=== PATIENT | male | born 1980 | race Caucasian/White ===

== ENCOUNTER 2017-11-16 18:40 | Emergency (ER) | payer SELFPAY ==
[~2017-11-16] VITALS: Ht 195.6 cm; Wt 139.7 kg
[2017-11-16 19:10] VITALS: BP 114/91
--- NOTE | 2017-11-16 20:09 | Emergency Room Report ---
History of Present Illness General Chief Complaint: Medical Clearance Source: Patient Present Illness HPI 37 yo male patient presents to ER BIB police for medical clearance. Patient reports going through withdrawal symptoms of heroin; last used yesterday. Patient reports difficulty breathing; reports hx of asthma; denies use of asthma medication. Also complains of nausea; denies vomiting. Denies chest pain, fever, diarrhea, PRADHAN, vision changes. Allergies: Coded Allergies: No Known Allergies (Unverified , 11/16/17) Patient History Past Medical History: see triage record Reviewed Nursing Documentation: PMH: Agreed, PSxH: Agreed Nursing Documentation-PMH Past Medical History: No History, Except For Review of Systems All Other Systems: negative except mentioned in HPI Physical Exam Vital Signs Date Time Temp Pulse Resp B/P (MAP) Pulse Ox O2 Delivery O2 Flow Rate FiO2 11/16/17 19:02 97.8 71 15 114/91 95 Room Air 97.9 Sp02 EP Interpretation: reviewed, normal General Appearance: well appearing, no apparent distress, alert, GCS 15 Head: normocephalic, atraumatic Eyes: bilateral eye normal inspection, bilateral eye PERRL ENT: hearing grossly normal, normal pharynx, no angioedema, normal voice, TMs + canals normal, uvula midline, moist mucus membranes Neck: full range of motion Respiratory: no rhonchi, no respiratory distress, no accessory muscle use, speaking full sentences, wheezing Cardiovascular #1: regular rate, rhythm, no edema Gastrointestinal: non tender, soft, no mass, non-distended, no guarding, no rebound Genitourinary: no CVA tenderness Musculoskeletal: back normal, digits/nails normal, gait/station normal, normal range of motion, non-tender, no calf tenderness Neurologic: alert, oriented x3, responsive, motor strength/tone normal, sensory intact Psychiatric: mood/affect normal Skin: no rash Lymphatic: no adenopathy Medical Decision Making PA Attestation Dr. James is my supervising Physician whom patient management has been discussed with. Diagnostic Impression: Primary Impression: Wheeze Additional Impressions: History of asthma Medical clearance for incarceration ER Course Pt presents to ED c/o asthma symptoms. DDX considered but are not limited to asthma, viral URI, influenza, bronchitis. VITAL SIGNS are WNL, patient is afebrile. Ordered breathing treatment, pain medication, Zofran for nausea, and dexamethasone. ER COURSE Patient provided with dexamethasone, Zofran and Toradol. Albuterol/Atrovent breathing treatment provided. Following treatment patient states no longer having difficulty with breathing. Patient is resting comfortably in no acute distress. Patient lungs clear to auscultation. Patient reports feeling better, in no acute distress, breathing normally. DISCHARGE: No rx provided at this time. Patient is to be discharged to police for booking. At this time pt is stable for d/c. Patient is resting comfortably in no acute distress, nontoxic appearing, able to answer questions without difficulty. Will provide with patient care instructions. Care plan and follow-up instructions provided. Patient instructed to follow-up with primary care provider in 3 - 5 days. Patient questions asked and answered. Patient reports understanding and agreement to treatment plan. ER precautions given. Patient instructed to return to ER immediately for any new or worsening of symptoms including but not limited to increasing SOB, persistent fever. Last Vital Signs Date Time Temp Pulse Resp B/P (MAP) Pulse Ox O2 Delivery O2 Flow Rate FiO2 11/16/17 19:02 97.8 71 15 114/91 95 Room Air 97.9 Disposition: HOME, SELF-CARE Condition: Stable Additional Instructions: Followup with primary care provider in 3 -5 days. Take medications as directed. Patient questions asked and answered. ER precautions given, patient instructed to return to ER immediately for any new or worsening of symptoms. OK to book. López Mcmullen Nov 16, 2017 20:09
[2017-11-16] MEDS ORDERED: Albuterol/Ipratropium 3ml neb HHN ONE (20:15)
[2017-11-16] MEDS ORDERED: Ketorolac 30mg Inj IM ONE (20:15)
[2017-11-16 20:55] VITALS: BP 114/91
== END 2017-11-16 20:55 | disposition home or self-care (01) ==
LOC: EMR 19:30
DX: J45.909 Unspecified asthma, uncomplicated (principal)
CPT/HCPCS: 94640; 96372; 99284; J1885; J8540; J7620